=== PATIENT | female | born 1945 | race African-American/Black ===

== ENCOUNTER 2021-05-01 17:06 | Emergency (ER) | payer OTHER ==
[~2021-05-01] VITALS: Ht 152.4 cm; Wt 68.0 kg
[~2021-05-01 17:06] MED LIST: FLUORESCEIN SODIUM 1 MG OPHTHALMIC STRIP OP ONE; PROPARACAINE (OPTHANINE 0.5%) 15 ML DROPS OP ONE
[2021-05-01 17:07] VITALS: BP_SYST 126
[2021-05-01] MEDS ORDERED: FLUORESCEIN SODIUM 1 MG OPHTHALMIC STRIP OP ONE (17:07)
[2021-05-01] MEDS ORDERED: TETRACAINE HCL/PF 0.5% OPHTHALMIC DROPS 4 ML OP ONE (17:07)
[2021-05-01] MEDS ORDERED: IBUP-1969 PO (17:26)
[2021-05-01] MEDS ORDERED: IBUPROFEN 600 MG TABLET PO ONE (17:30)
[2021-05-01 17:45] VITALS: BP_SYST 124
== END 2021-05-01 17:45 | disposition home or self-care (01) ==
LOC: SED 17:06
DX: S05.12XA Contusion of eyeball and orbital tissues, left eye, initial encounter (principal); Y04.0XXA Assault by unarmed brawl or fight, initial encounter; Y93.89 Activity, other specified; Y92.89 Other specified places as the place of occurrence of the external cause; Y99.8 Other external cause status
CPT/HCPCS: 99283